=== PATIENT | male | born 1965 | race Caucasian/White ===

== ENCOUNTER 2025-04-12 08:58 | Outpatient (CLI) | payer OTHER, SELFPAY ==
--- NOTE | ~2025-04-12 | NM_ITS ---
EXAMINATION: NM edy stress w perfusion DATE: 04/12/2025 12:44 INDICATION: Chest pain TECHNIQUE: Rest images were obtained following intravenous administration of 10.7 mCi Tc99m tetrofosmin (Myoview). The patient was infused intravenously with Lexiscan (Regadenoson). Then, 31.2 mCi Tc99m tetrofosmin (Myoview) was administered intravenously, and stress images were obtained comment initially in the supine position with repeat post stress images obtained in the prone position. Data was reconstructed into short axis and horizontal and vertical long axis SPECT images. Gated SPECT images were also obtained. COMPARISON: None. FINDINGS: There is some diaphragmatic attenuation artifact along the inferior wall on the rest and stress images obtained in the supine position which normalizes on the post stress imaging obtained in the prone position. There is no definite reversible or fixed perfusion abnormality to suggest ischemia or infarction. There is normal left ventricular chamber size, wall motion and ejection fraction. Left ventricular ejection fraction measures 59%. IMPRESSION: 1. Normal myocardial perfusion at rest and during stress. 2. Left ventricular ejection fraction measuring 59%. Reviewed, dictated and finalized at location A. [facility]
--- NOTE | 2025-04-12 09:34 | EST_ITS ---
Patient Info Name: Zhao De Souza Age: 59 years : 1965 Gender: Male Ht: 71 in Wt: 233 lbs BSA: 2.33 m2 HR: 59 bpm BP: 131 / 89 mmHg Exam Date: 04/12/2025 9:34 AM Patient Status: O Admit Date: 04/12/2025 Exam Type: CA stress edy w NM A regadenoson stress test was performed. Staff Referring Physician: Russell Ricardo MD Attending Provider: Russell Ricardo MD Exercise Technologist: Federica Kohli Exercise Physician: Sergey JaquezErin Joseph DO Summary 1. 1. Negative lexiscan stress test for ischemic ST changes by ECG criteria. 2. 2. Stable hemodynamics throughout the test. 3. 3. Nuclear scan to follow and will be reported separately. Please correlate with it. 4. 4. Patient informed of the above results. Protocol: Lexiscan Stress ECG Details Stage: REST Duration (min): 0 min : 43 sec HR (bpm): 60 SBP (mmHg): 131 DBP (mmHg): 89 Stage: REST Duration (min): 21 min : 40 sec HR (bpm): 69 SBP (mmHg): 131 DBP (mmHg): 89 Stage: STAGE 1 Duration (min): 0 min : 59 sec HR (bpm): 90 SBP (mmHg): 147 DBP (mmHg): 68 Stage: RECOVERY Duration (min): 1 min : 0 sec HR (bpm): 99 SBP (mmHg): 147 DBP (mmHg): 68 Stage: RECOVERY Duration (min): 2 min : 0 sec HR (bpm): 88 SBP (mmHg): 147 DBP (mmHg): 68 Stage: RECOVERY Duration (min): 3 min : 0 sec HR (bpm): 83 SBP (mmHg): 131 DBP (mmHg): 77 Stage: RECOVERY Duration (min): 3 min : 8 sec HR (bpm): 84 SBP (mmHg): 131 DBP (mmHg): 77 Rest HR: 69 bpm Peak HR: 99 bpm Rest Sys BP: 131 mmHg Peak Sys BP: 147 mmHg Max Pred HR: 161 bpm % Max Pred HR: 61 % Target HR: 137 bpm Max RPP: 14,553 bpm*mmHg Termination Reason: Completed protocol Cardiac Symptoms: Shortness of breath Total Time: 1 min : 0 sec Rest Mcnair BP: 89 mmHg Peak Mcnair BP: 68 mmHg Total Dose: 0.4 mg Resting ECG Sinus rhythm. Stress ECG No ST changes. Arrhythmias None. Report Signatures
--- OUTSIDE RECORDS SUMMARY | 2025-04-12 09:39 | XMS_ITS | Clinical Summary ---
Author Organization [facility] Address [address] [place] [address] Care Team Providers Care Core Driller Helper Name Role Phone Rico Del Rosario Primary Care Provider [phone] Source Comments [facility],non-owned Affiliates and Associated Physician Practices is amultiple site organization consisting of ambulatory clinics and hospital sitesin [place], [place] and [place]. This disclosure is being madepursuant to the Care Everywhere program and may not contain all information available regarding this patient. Last updated 18.[facility] Allergies No known active allergies Medications * Be aware that medications may not be up to date on this document. Alwaysverify current medications with the patient. ibuprofen (MOTRIN) 800 MG tabletIndication s:Low back pain Take 1 Tab by mouth 3 times daily. 20 Tab 0 04/19/2013 Active chlorzoxazone (PARAFON FORTE) 500 MG tabletIndication s:Low back pain Take 1 Tab by mouth 3 times daily as needed for Muscle Spasms. 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 Gender Identity Not on file Sexual Orientation Not on file Last Filed Vital Signs Vital Sign Reading Time Taken Comments Blood Pressure 118/76 02/14/2013 2:06 PM CDT Pulse 64 02/14/2013 2:06 PM CDT Temperature - - Respiratory Rate - - Oxygen Saturation - - Inhaled Oxygen Concentration - - Weight 106.1 kg (234 lb) 02/14/2013 2:06 PM CDT Height 180.3 cm (5' 11) 02/14/2013 2:06 PM CDT Body Mass Index 32.64 02/14/2013 2:06 PM CDT Plan of Treatment Health Maintenance Due Date Last Done Comments COLOGUARD (AGES 45-75) - COL ON CA SCREENING 1965 COLON MONITORING 1965 COLONOSCOPY - COLON CA SCREENING 1965 CT COLONOGRAPHY - COLON CA SCREENING 1965 Colorectal Cancer Screening 1965 FIT - COLON CA SCREENING 1965 FLEX SIG - COLON CA SCREENING 1965 LIPID TESTING 1965 HIV SCREENING 1980 HEPATITIS C SCREENING 06/12/1983 HEPATITIS B VACCINE (1 of 3 - 19+ 3-dose series) 1984 PNEUMOCOCCAL VACCINE 50+ (1 of 1 - PCV) 2015 ZOSTER VACCINE (1 of 2) 2015 DTAP/TDAP/TD VACCINES (2 - Tdap) 05/10/2018 05/10/19 09 DEPRESSION SCREENING 05/10/2024 COVID-19 VACCINE (1 - 2024-2 6 season) 2025 INFLUENZA VACCINE (#1) 2025 HIB VACCINE Aged Out No longer eligi ble based on patient's age to complete this topic HPV VACCINE Aged Out No longer eligi ble based on patient's age to complete this topic MENINGOCOCCAL (Group B) VACC INE SHARED DECISION-MAKING Aged Out No longer eligibl e based on patient's age to complete this topic MENINGOCOCCAL GROUPS A/C/Y/W VACCINE Aged Out No longer eligible b ased on patient's age to complete this topic Insurance [facility] Care Teams Core Driller Helper Relationship Specialty Start Date End Date Rico Del Rosario DO [address] [place] [address] PCP - General 11/04/09
--- OUTSIDE RECORDS SUMMARY | 2025-04-12 09:39 | XMS_ITS | Clinical Summary ---
Author Organization [facility] at the Medical Office Building Address [address] [place] [phone] Care Team Providers Care Sustainable Design Consultant Name Role Phone Russell Ricardo MD Primary Care Prov ider Allergies No known active allergies Medications meloxicam (MOBIC) 15 mg tabletIndications: Primary osteoarthritis of right knee TAKE 1 TABLET(15 MG) BY MOUTH DAILY 30 tablet 2 11/21/19 25 Active Additional Information Patient taking differently:15 mg oral Daily,Hasn't taken in about 2 weeks, Informant: Self, Reported on 04/03/2025 pravastatin (PRAVACHOL) 20 mg tablet Take 1 tablet (20 mg total) by mouth daily 01/30/20 25 Active docusate sodium (COLACE) 100 mg capsuleIndications :constipation Take 1 capsule (100 mg total) by mouth 2 (two) times a day 60 capsule 04/16/20 25 Active oxyCODONE-acetamin ophen (PERCOCET) 5-325 mg per tabletIndications: Pain Take 1 tablet by mouth every 8 (eight) hours as needed for pain 30 tablet 04/16/20 25 026 Active aspirin 325 mg tabletIndications: Aftercare following left knee joint replacement surgery Take 1 tablet (325 mg total) by mouth 2 (two) times a day 60 tablet 04/16/20 25 Active ondansetron ODT (ZOFRAN-ODT) 4 mg disintegrating tabletIndications: Aftercare following left knee joint replacement surgery Take 1 tablet (4 mg total) by mouth every 8 (eight) hours as needed for nausea or vomiting 10 tablet 04/16/20 25 Active ezetimibe (ZETIA) 10 mg tablet Take 1 tablet (10 mg total) by mouth daily 04/26/20 025 Discontin ued(Thera py completed ) chlorzoxazone (PARAFON FORTE) 500 mg tablet Take 1 tablet (500 mg total) by mouth 3 (three) times a day as needed 04/19/20 025 Discontin ued(Thera py completed ) colesevelam (WELCHOL) 625 mg tablet TAKE 6 TABLETS BY MOUTH DAILY 06/21/19 025 Discontin ued(Thera py completed ) rosuvastatin (CRESTOR) 10 mg tablet 04/21/20 025 Discontin ued(Thera py completed ) meloxicam (MOBIC) 15 mg tabletIndications: Primary osteoarthritis of right knee TAKE 1 TABLET(15 MG) BY MOUTH DAILY 30 tablet 2 02/21/20 025 Discontin ued(Thera py completed ) Active Problems Problem Noted Date Diagnosed Date Primary osteoarthritis of left knee 02/26/2025 High cholesterol 07/27/2023 Low back pain 11/04/2009 Encounters Date Type Department Care Team Description 04/10/2025 Telephone [facility] Medical [facility] [address] [place] [phone] Anitha Boland LPN 04/03/2025 2:30 PM PLATING AND POINT ASSEMBLY SUPERVISOR Pre-Admission Testing [facility] PreAdmission Testing [address] [place] [phone] Preop examination (Primary Dx); Primary osteoarthritis of left knee; Preop testing; Pain in other specified joint 04/03/2025 Telephone [facility] [address] [place] [phone] Cris Becerril DO 03/29/2025 Orders Only [facility] PreAdmission Testing [address] [place] [phone] Diana Monzon RN Preop testing (Primary Dx) 03/21/2025 Telephone [facility] [address] [place] [phone] Cris Becerril DO p.t. 03/21/2025 Plan of Care Documentation [facility] OP Physical Therapy [address] [place] [phone] 03/20/2025 5:15 PM PLATING AND POINT ASSEMBLY SUPERVISOR Therapy [facility] OP Physical Therapy [address] [place] [phone] Katiana Hawkins, PT Chronic pain of left knee (Primary Dx); Primary osteoarthritis of left knee 02/26/2025 Orders Only [facility] Medical [facility] [address] [place] [phone] Cris Becerril DO Primary osteoarthritis of left knee (Primary Dx) 02/20/2025 9:37 AM CDT - 02/20/2025 11:59 PM CDT Hospital Encounter [facility] Diag Imaging [address] [place] [phone] Primary osteoarthritis of left knee Discharge Disposition: Discharge to home or self care 02/20/2025 8:00 AM CDT Office Visit [facility] Medical [facility] [address] [place] [phone] Cris Becerril DO Primary osteoarthritis of left knee (Primary Dx); Primary osteoarthritis of right knee from Last 3 Months Surgical History Surgery Date Site/Laterality Comments KNEE SURGERY 11/03/2019 torn meniscus Medical History Medical History Date Comments High cholesterol Arthritis knees Obesity Family History Medical History Relation Name Comments HEART PROBLEMS Father Relation Name Status Comments Father Social History Tobacco Use Types Packs/Day Years Used Date Smoking Tobacco: Never Passive Smoke Exposure: Never Smokeless Tobacco: Never Tobacco Cessation:Counseling Given: Not Answered Alcohol Use Standard Drinks/Week Comments Yes 2 (1 standard drink = 0.6 oz pur e alcohol) AUDIT-C Answer Date Recorded Q1: How often do you have a drink containing alc ohol? 2-3 times a week 04/03/2025 Q2: How many drinks containi ng alcohol do you have on a typical day when you are drinking? 1 or 2 04/03/2025 Q3: How often do you have si x or more drinks on one occasion? Less than monthly 04/03/2025 Personal Safety Answer Date Recorded Have you ever been in or are you currently in a harmful physical or emotional relationship or is someone making you feel afraid or unsafe? Denies 04/03/2025 Sex and Gender Information Value Date Recorded Sex Assigned at Not on file Legal Sex Male 5:09 PM CDT Gender Identity Not on file Sexual Orientation Not on file Last Filed Vital Signs Vital Sign Reading Time Taken Comments Blood Pressure 155/108 04/03/2025 3:45 PM PLATING AND POINT ASSEMBLY SUPERVISOR Pulse 68 04/03/2025 2:50 PM PLATING AND POINT ASSEMBLY SUPERVISOR Temperature 36.4 C (97.6 F) 04/03/2025 2:50 PM PLATING AND POINT ASSEMBLY SUPERVISOR Respiratory Rate 18 04/03/2025 2:50 PM PLATING AND POINT ASSEMBLY SUPERVISOR Oxygen Saturation 100% 04/03/2025 2:50 PM PLATING AND POINT ASSEMBLY SUPERVISOR Inhaled Oxygen Concentration - - Weight 105.8 kg (233 lb 3.2 oz) 04/03/2025 2:50 PM PLATING AND POINT ASSEMBLY SUPERVISOR Height 180.3 cm (5' 11) 04/03/2025 2:50 PM PLATING AND POINT ASSEMBLY SUPERVISOR Body Mass Index 32.52 04/03/2025 2:50 PM PLATING AND POINT ASSEMBLY SUPERVISOR Plan of Treatment Upcoming Encounters Date Type Department Care Team (Latest Contact Info) Description 04/18/2025 8:35 AM PLATING AND POINT ASSEMBLY SUPERVISOR Hospital Encounter [facility] [place] [address] [place] [phone] Cris Becerril DO [address] [place] [address] [address]LL [address] [place] [phone] 04/18/2025 8:35 AM PLATING AND POINT ASSEMBLY SUPERVISOR Anesthesia Event [facility] [place] [address] [place] [phone] Carolina Chisholm, ELECTRICIAN'S HELPER [address] [place] [phone] 04/18/2025 8:35 AM PLATING AND POINT ASSEMBLY SUPERVISOR - 04/18/2025 10:25 AM PLATING AND POINT ASSEMBLY SUPERVISOR Surgery [facility] [place] [address] [place] [phone] Cris Becerril DO [address] [place] [address] [place] [address] LEFT TOTAL KNEE ARTHROPLASTY -SAME DAY TOTAL Scheduled Procedures Name Priority Associated Diagnoses Date/Ti me ARTHROPLASTY TOTAL KNEE Primary osteoarthritis of left knee 04/18/2025 8:35 AM PLATING AND POINT ASSEMBLY SUPERVISOR Health Maintenance Due Date Last Done Comments Colon Cancer Screening-Colonoscopy 1965 Depression Screening 1965 Hepatitis C Screening 1965 Prostate Cancer Screening-PSA 1965 Hepatitis B Screening 1983 Regular Well Visit/Exam 18-64 1983 Zoster Vaccine (1 of 2) 2015 DTaP/Tdap/Td Vaccine (2 - Tdap) 05/10/2018 9 Influenza Vaccine (#1) 2025 Pneumococcal vaccine <65 Aged Out No longer eligible based on patient's age to complete this topic Procedures Procedure Name Priority Date/Time Associated Diagnosis Comments EGFR Routine 04/03/2025 2:46 PM PLATING AND POINT ASSEMBLY SUPERVISOR Primary osteoarthritis of left knee Preop testing DIFFERENTIAL AUTO Routine 04/03/2025 2:4 6 PM PLATING AND POINT ASSEMBLY SUPERVISOR Primary osteoarthritis of left knee Preop testing COMPREHENSIVE METABOLIC PANEL Routine 04/03/2025 2:46 PM PLATING AND POINT ASSEMBLY SUPERVISOR Primary osteoarthritis of left knee Preop testing CBC WITH AUTO DIFFERENTIAL Routine 04/03/2025 2:46 PM PLATING AND POINT ASSEMBLY SUPERVISOR Primary osteoarthritis of left knee Preop testing TYPE AND SCREEN 14 DAY Routine 04/03/2025 2:46 PM PLATING AND POINT ASSEMBLY SUPERVISOR Primary osteoarthritis of left knee Preop testing PROTIME-INR Routine 04/03/2025 2:46 PM PLATING AND POINT ASSEMBLY SUPERVISOR Primary osteoarthritis of left knee Preop testing Pain in other specified joint INFECTION PREVENTION MRSA ONLY (STAPHYLOCOCCUS AUREUS) PCR Routine 04/03/2025 2:46 PM PLATING AND POINT ASSEMBLY SUPERVISOR Primary osteoarthritis of left knee Preop testing NICOTINE METABOLITE SCREEN, URINE Routine 04/03/2025 2:44 PM PLATING AND POINT ASSEMBLY SUPERVISOR Primary osteoarthritis of left knee Preop testing ECG 12-LEAD Routine 04/03/2025 2:43 PM PLATING AND POINT ASSEMBLY SUPERVISOR Preop examination XR KNEE LEFT 3 VIEWS Schedule Routine, Read Routine (OP Routine) 02/20/2025 9:42 AM CDT Primary osteoarthritis of left knee from Last 3 Months Results * TYPE AND SCREEN 14 DAY (04/03/2025 2:46 PM PLATING AND POINT ASSEMBLY SUPERVISOR) ABO Rh O Negative [facility] Humberto, indirect Negative [facility] Blood 04/03/2025 2:46 PM PLATING AND POINT ASSEMBLY SUPERVISOR 04/03/2025 2:50 PM PLATING AND POINT ASSEMBLY SUPERVISOR Narrative [facility] - 04/03/2025 3:43 PM PLATING AND POINT ASSEMBLY SUPERVISOR Is this test being ordered in advance for a procedure?->Yes Expected date of procedure:->04/18/25 Has the patient been transfused in the past 3 months?->No Cris Becerril DO LAB BLOOD BANK TEST ORDERABLES Final Result [facility] [address] [facility] Department [place] [address] * eGFR (04/03/2025 2:46 PM PLATING AND POINT ASSEMBLY SUPERVISOR) eGFR 89 >=60 mL/min/1. 73 m2 Comment: Interpretive Data Reference Interval Normal >/= 90 mL/min/1.73m2 Mildly decreased* 60 - 89 mL/min/1.73m2 Mildly to moderately decreased 45 - 59 mL/min/1.73m2 Moderately to severely decreased 30 - 44 mL/min/1.73m2 Severely decreased 15 - 29 mL/min/1.73m2 Kidney Failure < 15 mL/min/1.73m2 *Relative to young adult level Estimated glomerular filtration rate is determined by the 2020 CKD-EPI equation recommended by the National Kidney Foundation (A Unifying Approach to GFR Estimation: Recommendations of the NKF-ASK Task Force on Reassessing the Inclusion of Race in Diagnosing Kidney Disease, JASN 2020). The CKD-EPI equation should not be used for patients with unstable renal function and has not been validated in children and those over 70. Current interpretive data was last reviewed 2021. Blood 04/03/2025 2:46 PM PLATING AND POINT ASSEMBLY SUPERVISOR 04/03/2025 2:50 PM PLATING AND POINT ASSEMBLY SUPERVISOR us Cris Becerril DO LAB BLOOD ORDERABLES Final Res ult [facility] [address] [facility] Department [place] [address] * Differential, auto (04/03/2025 2:46 PM PLATING AND POINT ASSEMBLY SUPERVISOR) Neutrophil abs 6.03 1.50 - 6.50 K/cumm Imm gran abs 0.03 0.00 - 0.10 K/cumm [facility] Lymphocyte abs 1.89 0.80 - 3.30 K/cumm [facility] Monocyte abs 0.62 0.20 - 0.80 K/cumm [facility] Eosinophil abs 0.18 0.00 - 0.50 K/cumm [facility] Basophil abs 0.05 0.00 - 0.10 K/cumm [facility] Neutrophil pct 68.6 % [facility] Comment: Interpretive Data Percent cell count reference ranges are not reported, since discordance with absolute values may lead to misinterpretation of CBC data. Current Interpretive Data was last revised on 2017. Imm gran pct 0.3 % [facility] Comment: Interpretive Data Percent cell count reference ranges are not reported, since discordance with absolute values may lead to misinterpretation of CBC data. Current Interpretive Data was last revised on 2017. Lymphocyte pct 21.5 % [facility] Comment: Interpretive Data Percent cell count reference ranges are not reported, since discordance with absolute values may lead to misinterpretation of CBC data. Current Interpretive Data was last revised on 2017. Monocyte pct 7.0 % [facility] Comment: Interpretive Data Percent cell count reference ranges are not reported, since discordance with absolute values may lead to misinterpretation of CBC data. Current Interpretive Data was last revised on 2017. Eosinophil pct 2.0 % [facility] Comment: Interpretive Data Percent cell count reference ranges are not reported, since discordance with absolute values may lead to misinterpretation of CBC data. Current Interpretive Data was last revised on 2017. Basophil pct 0.6 % [facility] Comment: Interpretive Data Percent cell count reference ranges are not reported, since discordance with absolute values may lead to misinterpretation of CBC data. Current Interpretive Data was last revised on 2017. Blood 04/03/2025 2:46 PM PLATING AND POINT ASSEMBLY SUPERVISOR 04/03/2025 2:50 PM PLATING AND POINT ASSEMBLY SUPERVISOR [facility] LAB BLOOD ORDERABLES Final Res ult Performing Organization Address [facility] de Phone Number [address] [address] * Infection Prevention MRSA Only (Staphylococcus aureus) PCR Nasal (04/03/2025 2:46 PM PLATING AND POINT ASSEMBLY SUPERVISOR) [facility] PCR Scrn, Methicillin resistant Staphylococcus aureus (MRSA) Not Detected Not Detected Comment: Interpretive Data Testing performed using Nucleic Acid Amplification with the Fittr Xpert MRSA NxG Assay. This assay detects target DNA from mecA, mecC and the SCCmec insertion site of Staphylococcus aureus using Real-Time PCR and has been cleared by the FDA. Performance characteristics have been verified by the [facility]. Current Interpretive Data was last revised on 2023 Nasal 04/03/2025 2:46 PM PLATING AND POINT ASSEMBLY SUPERVISOR 04/03/2025 2:50 PM PLATING AND POINT ASSEMBLY SUPERVISOR [email or web address] LAB MICROBIOLOGY - GENERAL ORD ERABLES Final Result Performing Organization Address [facility] Co de Phone Number [facility] [address] [place] [address] * CBC with auto differential (04/03/2025 2:46 PM PLATING AND POINT ASSEMBLY SUPERVISOR) [facility] WBC 8.80 3.80 - 9.90 K/cumm Hgb 14.9 13.0 - 17.5 g/dL [facility] Hct 44.8 38.9 - 50.3 % [facility] Plt 215 150 - 400 K/cumm [facility] MPV 9.9 9.1 - 12.3 fL [facility] RBC 5.30 4.30 - 5.80 M/cumm [facility] MCV 84.5 81.3 - 96.4 fL [facility] MCH 28.1 27.1 - 33.3 pg [facility] MCHC 33.3 32.3 - 35.7 g/dL [facility] RDW CV 12.7 11.1 - 14.9 % [facility] RDW SD 39.2 35.7 - 48.1 fL [facility] NRBC abs 0.00 0.00 - 0.01 K/cumm [facility] Blood 04/03/2025 2:46 PM PLATING AND POINT ASSEMBLY SUPERVISOR 04/03/2025 2:50 PM PLATING AND POINT ASSEMBLY SUPERVISOR [employer] LAB BLOOD ORDERABLES Final Res ult Performing Organization Address [facility] de Phone Number [address] [employer] [place] [address] * Protime-INR (04/03/2025 2:46 PM PLATING AND POINT ASSEMBLY SUPERVISOR) PT 13.30 12.00 - 14.60 sec INR 1.00 0.90 - 1.20 [facility] Comment: Interpretive data Oral anticoagulant therapeutic ranges: Venous thromboembolism prophylaxis or treatment: 2.0-3.0 CARDIOLOGY Standard range: 2.0-3.0 High-intensity range: 2.5-3.5 Refer to indication-specific guidelines for appropriate target ranges for prosthetic heart valve replacement. Current interpretive data was last revised on 2019. Blood 04/03/2025 2:46 PM PLATING AND POINT ASSEMBLY SUPERVISOR 04/03/2025 2:50 PM PLATING AND POINT ASSEMBLY SUPERVISOR [employer] LAB BLOOD ORDERABLES Final Res ult Performing Organization Address [facility] Co de Phone Number [address] [employer] [place], [place] [id number] * (ABNORMAL) Comprehensive metabolic panel (04/03/2025 2:46 PM PLATING AND POINT ASSEMBLY SUPERVISOR) Sodium 134(L) 135 - 145 mmol/L Potassium, pl 3.8 3.3 - 4.9 mmol/L [facility] Chloride 101 97 - 110 mmol/L [facility] CO2 23 22 - 32 mmol/L [facility] Anion gap 10 2 - 15 mmol/L [facility] BUN 18 6 - 25 mg/dL [facility] Creatinine 0.98 0.80 - 1.30 mg/dL [facility] Glucose 92 70 - 199 mg/dL [facility] Comment: Interpretive Data Fasting glucose >/= 126 mg/dl is diagnostic for diabetes. Fasting is defined as no caloric intake for at least 8 hours. Fasting glucose between 100 mg/dl to 125 mg/dl is diagnostic of prediabetes. In a patient with classic symptoms of hyperglycemia or hyperglycemic crisis, a random glucose >/= 200 mg/dl is diagnostic for diabetes. In the absence of unequivocal hyperglycemia, results should be confirmed by repeat testing. The classification and Diagnosis of Diabetes Diabetes Care 202; 46: S19-S40. Current interpretive data was last revised 2022. Calcium 9.1 8.5 - 10.3 mg/dL [facility] Bilirubin, total 0.5 0.1 - 1.2 mg/dL [facility] Protein, pl 6.7 6.5 - 8.5 g/dL [facility] Albumin 4.4 3.5 - 5.0 g/dL [facility] Alk phos 78 40 - 130 Units/L [facility] ALT 17 7 - 55 Units/L [facility] AST 23 10 - 50 Units/L [facility] Blood 04/03/2025 2:46 PM PLATING AND POINT ASSEMBLY SUPERVISOR 04/03/2025 2:50 PM PLATING AND POINT ASSEMBLY SUPERVISOR us Cris Becerril DO LAB BLOOD ORDERABLES Final Res ult [facility] [address] [facility] Department [place] [address] * Nicotine metabolite screen, urine (04/03/2025 2:44 PM PLATING AND POINT ASSEMBLY SUPERVISOR) Pathologist [facility] Nicotine, ur <5.0 <5.0 ng/mL [place] [facility] Cotinine, ur <5.0 <5.0 ng/mL [facility] Anabasine ur <2.0 <2.0 ng/mL [facility] Comment: ADDITIONAL INFORMATION This test was developed and its performance characteristics determined by [facility] in a manner consistent with CLIA requirements. This test has not been cleared or approved by the U.S. Food and Drug Administration. Test Performed by: [facility] [address] [place] [address] Live Truck Operator: Breana Harman Ph.D.; CLIA# [id number] Nornicotine, ur <2.0 <2.0 ng/mL [facility] Urine 04/03/2025 2:44 PM PLATING AND POINT ASSEMBLY SUPERVISOR 04/03/2025 3:55 PM PLATING AND POINT ASSEMBLY SUPERVISOR Narrative [facility] - 04/08/2025 4:01 PM PLATING AND POINT ASSEMBLY SUPERVISOR sent to lab; 04/04/2025 15:10:39 PLATING AND POINT ASSEMBLY SUPERVISOR [id number] received in lab; 04/06/2025 11:10:19 PLATING AND POINT ASSEMBLY SUPERVISOR [id number] us Cris Becerril DO LAB URINE ORDERABLES Final Res ult [facility] [address] [facility] Department [place] [address] [place] [facility] * ECG 12 lead (04/03/2025 2:43 PM PLATING AND POINT ASSEMBLY SUPERVISOR) Ventricular Rate EKG/Min 64 BPM [facility] Atrial Rate 64 BPM [facility] VA-Interval (MSEC) 182 ms [facility] QRS-Interval (MSEC) 92 ms [facility] QT-Interval (MSEC) 402 ms [facility] QTc 414 ms [facility] P Rufe 42 degrees [facility] R Rufe 44 degrees [facility] T Rufe 2 degrees [facility] Diagnosis Normal sinus rhythm Normal ECG No previous ECGs available Confirmed by ESPERANZA CRISOSTOMO M.D. ([id number]) on 04/03/2025 4:22:26 PM [facility] 04/03/2025 2:43 PM PLATING AND POINT ASSEMBLY SUPERVISOR 04/03/2025 4:22 PM PLATING AND POINT ASSEMBLY SUPERVISOR Carolina Chisholm ELECTRICIAN'S HELPER ECG ORDERABLES Margaret l Result [facility] * XR Knee Left 3 Views (02/20/2025 9:42 AM CDT) Anatomical Region Laterality Modality Lower Extremities, Knee Left Computed Radiography 02/20/2025 3:07 PM CDT Narrative 02/20/2025 3:08 PM CDT EXAM DESCRIPTION: 1. XR KNEE LEFT 3 VIEWS REASON FOR STUDY: osteoarthritis Medial side knee pain x 4 mths, NKI FINDINGS: Three views submitted with comparison 01/27/2024. Severe medial predominant left knee osteoarthritis. No acute fracture. Small knee effusion. Pretibial soft tissue swelling is present. Right knee osteoarthritis noted. IMPRESSION: 1. Severe medial predominant left knee osteoarthritis with a small effusion. 2. Pretibial soft tissue swelling. THIS IS AN ELECTRONICALLY VERIFIED FINAL REPORT 02/20/2025 3:08 PM - Electronically signed by Guicho Fletcher M.D. T: Report ID: [id number] Reading Location: [id number] Procedure Note Guicho Fletcher MD - 02/20/2025 EXAM DESCRIPTION: 1. XR KNEE LEFT 3 VIEWS REASON FOR STUDY: osteoarthritis Medial side knee pain x 4 mths, NKI FINDINGS: Three views submitted with comparison 01/27/2024. Severe medial predominant left knee osteoarthritis. No acute fracture.Small knee effusion. Pretibial soft tissue swelling is present. Right knee osteoarthritis noted. IMPRESSION: 1. Severe medial predominant left knee osteoarthritis with a smalleffusion. 2. Pretibial soft tissue swelling. THIS IS AN ELECTRONICALLY VERIFIED FINAL REPORT 02/20/2025 3:08 PM - Electronically signed by Guicho Fletcher M.D. T: Report ID: [id number] Reading Location: [id number] Cris Becerril DO IMG XR PROCEDURES Final Result from Last 3 Months Insurance [facility] Care Teams Sustainable Design Consultant Relationship Specialty Start Date End Date Russell Ricardo MD [address] [place] [address] PCP - General Family Medicine 03/22/25
== END 2025-04-12 08:59 | disposition home or self-care (01) ==
PROVIDERS: PCP Family Medicine Adolescent Medicine; Visit Provider Family Medicine Adolescent Medicine
DX: Z01.810 Encounter for preprocedural cardiovascular examination (principal); R07.9 Chest pain, unspecified
CPT/HCPCS: 78452; 93017; A9502; J2785